=== PATIENT | male | born 1985 | race Caucasian/White ===

== ENCOUNTER 2024-07-27 22:39 | Emergency (ER) | payer BC ==
[~2024-07-27] VITALS: Ht 165.1 cm; Wt 82.0 kg
[2024-07-27 22:41] VITALS: O2SAT 96
[2024-07-27 23:02] VITALS: BP 196/126; PULSE 102; RESP 18; TEMP 37.4; O2SAT 98
== END 2024-07-28 00:58 | disposition left against medical advice (07) ==
LOC: ER 22:39
DX: H92.09 Otalgia, unspecified ear (principal); Z53.21 Procedure and treatment not carried out due to patient leaving prior to being seen by health care provider